=== PATIENT | female | born 1945 | race Caucasian/White ===

== ENCOUNTER 2017-05-06 11:08 | Emergency (ER) | payer MEDICARE, MEDICAID ==
[~2017-05-06] VITALS: Ht 160 cm; Wt 35.0 kg
[~2017-05-06 11:08] MED LIST: FERGLU300T PO; HYDR-3972 PO; NICO-687 TD; OMEP20CA10 PO; ONDA4TAB6 PO; PRO2.5T PO; ROPI1TAB17 PO; TRAZ150T78 PO
[2017-05-06 11:52] LABS: BASOPHILS # (AUTO) 0.1 X10'3 (0-0.2); BASOPHILS % (AUTO) 0.5 % (0-1); EOSINOPHILS # (AUTO) 0.2 X10'3 (0-0.9); EOSINOPHILS % (AUTO) 1.8 % (0-6); HEMATOCRIT 44.7 % (35.0-45.0); HEMOGLOBIN 14.8 g/dl (12.0-16.0); LYMPHOCYTES # (AUTO) 0.5 X10'3 (1.1-4.8); LYMPHOCYTES % (AUTO) 3.7 % (21-51); MEAN CORPUSCULAR HGB CONC 33.2 % (33.0-36.5); MEAN CORPUSCULAR VOLUME 99.5 FL (78-98); MEAN PLATELET VOLUME 7.7 FL (7.4-10.4); MONOCYTES # (AUTO) 0.3 X10'3 (0-0.9); MONOCYTES % (AUTO) 2.2 % (2-12); NEUTROPHILS # (AUTO) 12.4 X10'3 (1.8-7.7); NEUTROPHILS % (AUTO) 91.8 % (42-75); PLATELET COUNT 191 X10'3 (140-440); RED BLOOD COUNT 4.49 X10'6 (4.20-5.60); RED CELL DISTRIBUTION WIDTH 14.3 % (11.5-14.5); WHITE BLOOD COUNT 13.5 X10'3 (4.5-11.0)
[2017-05-06 12:04] LABS: ALANINE AMINOTRANSFERASE 10 U/L (12-78); ALBUMIN 3.6 G/DL (3.4-5.0); ALBUMIN/GLOBULIN RATIO 1.3 (1.1-1.5); ALKALINE PHOSPHATASE 47 IU/L (46-116); ANION GAP 9 (8-16); ASPARTATE AMINO TRANSFERASE 13 U/L (10-37); BILIRUBIN,TOTAL 0.5 MG/DL (0.1-1.0); BLOOD UREA NITROGEN 11 MG/DL (7-18); BUN/CREATININE RATIO 12.6 (6.6-38.0); CALCIUM 8.7 MG/DL (8.5-10.1); CHLORIDE 104 MMOL/L (99-107); CREATININE 0.87 MG/DL (0.40-0.90); GLUCOSE 113 MG/DL (70-104); LIPASE 299 U/L (73-393); POTASSIUM 3.3 MMOL/L (3.5-5.1); SODIUM 141 MMOL/L (135-145); TOTAL CARBON DIOXIDE 28.5 MMOL/L (24-32); TOTAL PROTEIN 6.4 G/DL (6.4-8.2); eGFR 64 ML/MIN
[2017-05-06] MEDS ORDERED: ONDA4TAB6 PO (12:39)
[2017-05-06] MEDS: ondansetron 4mg rapidly disintigrating tab PO ONE (13:39)
[2017-05-06 13:43] VITALS: BP 149/96
== END 2017-05-06 13:45 | disposition home or self-care (01) ==
LOC: ER 11:09
DX: R10.12 Left upper quadrant pain (principal); R63.6 Underweight; R11.2 Nausea with vomiting, unspecified; R19.7 Diarrhea, unspecified; I10 Essential (primary) hypertension; J44.9 Chronic obstructive pulmonary disease, unspecified; K21.9 Gastro-esophageal reflux disease without esophagitis; G89.29 Other chronic pain; F12.10 Cannabis abuse, uncomplicated; Z68.1 Body mass index [BMI] 19.9 or less, adult; Z79.899 Other long term (current) drug therapy; Z98.890 Other specified postprocedural states; Z88.8 Allergy status to other drugs, medicaments and biological substances
CPT/HCPCS: 36415; 74176; 80053; 83690; 85025; 99285

== ENCOUNTER 2017-07-08 14:33 | Inpatient (IN) | payer MEDICARE, MEDICAID ==
[~2017-07-08] VITALS: Ht 160 cm; Wt 31.8 kg
[2017-07-08] MEDS ORDERED: dextrose 50%-water 50ml dispensing syringe IV ONE (15:17)
[2017-07-08 16:06] LABS: ALANINE AMINOTRANSFERASE 107 U/L (12-78); ALKALINE PHOSPHATASE 83 IU/L (46-116); ANION GAP 21 (8-16); ASPARTATE AMINO TRANSFERASE 502 U/L (10-37); BILIRUBIN,TOTAL 0.6 MG/DL (0.1-1.0); BLOOD UREA NITROGEN 66 MG/DL (7-18); BUN/CREATININE RATIO 42.9 (6.6-38.0); CALCIUM 8.3 MG/DL (8.5-10.1); CHLORIDE 104 MMOL/L (99-107); CREATININE 1.54 MG/DL (0.40-0.90); POTASSIUM 5.5 MMOL/L (3.5-5.1); SODIUM 145 MMOL/L (135-145); TOTAL CARBON DIOXIDE 19.7 MMOL/L (24-32); eGFR 33 ML/MIN
[2017-07-08 16:10] LABS: GLUCOSE 11 MG/DL (70-104); TROPONIN I 0.32 NG/ML (0.0-0.05)
[2017-07-08] MEDS ORDERED: normal saline 1000ml 1,000 ML IV SCH (16:10)
[2017-07-08] MEDS ORDERED: normal saline 1000ml 1,000 ML IV ONE (16:10)
[2017-07-08 16:12] LABS: BASOPHILS % (AUTO) 0 % (0-1); EOSINOPHILS % (AUTO) 0 % (0-6); HEMATOCRIT 28.7 % (35.0-45.0); HEMOGLOBIN 9.7 g/dl (12.0-16.0); LYMPHOCYTES # (AUTO) 0.4 X10'3 (1.1-4.8); LYMPHOCYTES % (AUTO) 2.4 % (21-51); MEAN CORPUSCULAR HEMOGLOBIN 34.8 PG (27.0-31.0); MEAN CORPUSCULAR HGB CONC 33.9 % (33.0-36.5); MEAN CORPUSCULAR VOLUME 102.7 FL (78-98); MEAN PLATELET VOLUME 8.9 FL (7.4-10.4); MONOCYTES # (AUTO) 0.8 X10'3 (0-0.9); MONOCYTES % (AUTO) 5.5 % (2-12); NEUTROPHILS # (AUTO) 14.1 X10'3 (1.8-7.7); NEUTROPHILS % (AUTO) 92.1 % (42-75); PLATELET COUNT 176 X10'3 (140-440); RED BLOOD COUNT 2.79 X10'6 (4.20-5.60); WHITE BLOOD COUNT 15.3 X10'3 (4.5-11.0)
[2017-07-08 16:19] LABS: INR 1.4 INR; PARTIAL THROMBOPLASTIN TIME 32 SECONDS (22-32); PROTHROMBIN TIME 14.1 SECONDS (9.0-12.0)
[2017-07-08 16:27] LABS: LACTIC SEPSIS 1.7 MMOL/L (0.4-2.0)
[2017-07-08] MEDS ORDERED: dextrose 5%-normal saline 1,000 ML IV ONE ×2 (16:30→16:40)
[2017-07-08 16:36] LABS: CLARITY,URINE SLIGHTLY CLOUDY (Clear); COLOR,URINE YELLOW (Yellow); GLUCOSE, URINE NEGATIVE (Neg); KETONES,URINE 15 mg/dl (Neg); LEUKOCYTE ESTERASE ,URINE NEGATIVE (Neg); NITRITES, URINE NEGATIVE (Neg); OCCULT BLOOD,URINE LARGE (Neg); PH,URINE 5.5 (4.8-8.0); PROTEIN,URINE 30 mg/dl (Neg); UROBILINOGEN,URINE 0.2 E.U/dL (0.2-1.0)
[2017-07-08 16:41] LABS: URINE AMPHETAMINE SCREEN NEGATIVE (Neg); URINE BARBITUATE SCREEN NEGATIVE (Neg); URINE BENZODIAZEPINES SCREEN NEGATIVE (Neg); URINE CANNABINOID SCREEN NEGATIVE (Neg); URINE COCAINE SCREEN NEGATIVE (Neg); URINE METHADONE SCREEN NEGATIVE (Neg); URINE OPIATE SCREEN POSITIVE (Neg); URINE PHENCYCLIDINE SCREEN NEGATIVE (Neg)
[2017-07-08] MEDS ORDERED: lactulose 20gm/30ml cup PO ONE (16:45)
[2017-07-08 16:56] LABS: UA COLLECTION TYPE STRAIGHT CATH
[2017-07-08 17:05] LABS: BACTERIA,URINE 1+ /HPF (Neg); RBC,URINE 0-2 /HPF (0-2); SQUAMOUS EPITHELIAL CELL,UR FEW /LPF (FEW)
[2017-07-08 17:06] LABS: AMORPHOUS URATES 1+; MUCUS STRANDS NONE SEEN /LPF (Neg)
[2017-07-08 17:30] LABS: ANISOCYTOSIS 2+; LARGE PLATELETS FEW; PLATELET ESTIMATE NORMAL; TOTAL CELLS COUNTED 100
[2017-07-08 17:32] LABS: MICROCYTOSIS 1+; POLYCHROMASIA FEW
[2017-07-08 17:35] LABS: ABG BASE EXCESS -15.6 mmol/L (-2.0-3.0); ABG HCO3 12.7 mmol/L (22.0-26.0); ABG OXYGEN SATURATION 93.6 % (95-98); ABG PCO2 (T) 40.4 mmHg (32.0-45.0); ABG PH (T) 7.116 (7.350-7.450); ABG PO2 (T) 94.8 mmHg (83-108); ALLEN'S TEST Positive; FCOHb 1.1 % (0.5-1.5); FMetHb 0.3 % (0.3-1.12); FO2Hb 92.3 % (94-100); TOTAL HEMOGLOBIN 8.4 G/dl (12.0-16.0)
[2017-07-08] MEDS ORDERED: lactulose 20gm/30ml cup RC ONE (17:40)
[2017-07-08] MEDS ORDERED: LORazepam 2 mg/ml vial IV ONE (17:55)
[2017-07-08] MEDS: sodium bicarbonate (8.4%) inj. 100 MEQ in dextrose 5%-water 1,000 ML IV SCH (18:30)
[2017-07-08] MEDS ORDERED: dextrose ORAL solution 15 GM/59 ML bottle PO PRN ×2 (18:50)
[2017-07-08] MEDS ORDERED: dextrose 50%-water 50ml dispensing syringe IV PRN ×2 (18:50)
[2017-07-08] MEDS ORDERED: morphine 2 MG/ML inj. syringe IV PRN (18:50)
[2017-07-08] MEDS ORDERED: ondansetron/PF 4mg/2ml inj IV PRN (18:50)
[2017-07-08] MEDS ORDERED: glucagon, human recombinant 1mg kit SUBCUT PRN (18:50)
[2017-07-08] MEDS ORDERED: bisacodyl 10mg suppository rectal RC PRN (18:50)
[2017-07-08] MEDS ORDERED: acetaminophen 325mg tablet PO PRN (18:50)
[2017-07-08] MEDS ORDERED: mag hydrox/Alum hydrox/simeth 30ml oral suspension PO PRN (18:50)
[2017-07-08] MEDS ORDERED: HYDROcodone/acetaminophen 5mg/325mg tablet PO PRN (18:50)
[2017-07-08] MEDS: cefTRIAXone 1g/NS 100ml IVPB 100 ML IV SCH (19:29)
[2017-07-08 22:44] LABS: ALBUMIN 2.4 G/DL (3.4-5.0); ANION GAP 13 (8-16); BLOOD UREA NITROGEN 57 MG/DL (7-18); BUN/CREATININE RATIO 40.1 (6.6-38.0); CHLORIDE 111 MMOL/L (99-107); CREATININE 1.42 MG/DL (0.40-0.90); GLUCOSE 252 MG/DL (70-104); SODIUM 148 MMOL/L (135-145); TOTAL CARBON DIOXIDE 23.6 MMOL/L (24-32); eGFR 36 ML/MIN
[2017-07-08 22:53] LABS: HEMOGLOBIN A1C 4.4 % (4.5-6.2)
[2017-07-09] MEDS: sodium bicarbonate (8.4%) inj. 100 MEQ in dextrose 5%-water 1,000 ML IV SCH (05:19)
[2017-07-09] MEDS ORDERED: ALBU18HF2 (07:05)
[2017-07-09] MEDS ORDERED: SERT100T10 PO (07:05)
[2017-07-09] MEDS ORDERED: ROPI1TAB4 (07:05)
[2017-07-09] MEDS ORDERED: MELO-102 PO (07:05)
[2017-07-09 07:20] LABS: BASOPHILS % (AUTO) 0 % (0-1); EOSINOPHILS % (AUTO) 0.1 % (0-6); HEMATOCRIT 28.1 % (35.0-45.0); HEMOGLOBIN 9.4 g/dl (12.0-16.0); LYMPHOCYTES # (AUTO) 0.3 X10'3 (1.1-4.8); LYMPHOCYTES % (AUTO) 2.5 % (21-51); MEAN CORPUSCULAR HEMOGLOBIN 34.5 PG (27.0-31.0); MEAN CORPUSCULAR HGB CONC 33.4 % (33.0-36.5); MEAN CORPUSCULAR VOLUME 103.1 FL (78-98); MEAN PLATELET VOLUME 8.6 FL (7.4-10.4); MONOCYTES # (AUTO) 0.6 X10'3 (0-0.9); MONOCYTES % (AUTO) 4.7 % (2-12); NEUTROPHILS # (AUTO) 12.2 X10'3 (1.8-7.7); NEUTROPHILS % (AUTO) 92.7 % (42-75); PLATELET COUNT 117 X10'3 (140-440); RED BLOOD COUNT 2.73 X10'6 (4.20-5.60); RED CELL DISTRIBUTION WIDTH 18.3 % (11.5-14.5); WHITE BLOOD COUNT 13.1 X10'3 (4.5-11.0)
[2017-07-09 07:30] VITALS: BP 158/87
[2017-07-09 07:42] LABS: ALANINE AMINOTRANSFERASE 120 U/L (12-78); ALBUMIN 2.4 G/DL (3.4-5.0); ALBUMIN/GLOBULIN RATIO 0.8 (1.1-1.5); ALKALINE PHOSPHATASE 74 IU/L (46-116); ANION GAP 11 (8-16); ASPARTATE AMINO TRANSFERASE 327 U/L (10-37); BILIRUBIN,TOTAL 0.4 MG/DL (0.1-1.0); BLOOD UREA NITROGEN 48 MG/DL (7-18); BUN/CREATININE RATIO 36.6 (6.6-38.0); CHLORIDE 110 MMOL/L (99-107); CREATININE 1.31 MG/DL (0.40-0.90); GLUCOSE 145 MG/DL (70-104); POTASSIUM 3.5 MMOL/L (3.5-5.1); SODIUM 150 MMOL/L (135-145); TOTAL CARBON DIOXIDE 28.6 MMOL/L (24-32); TOTAL PROTEIN 5.3 G/DL (6.4-8.2); eGFR 40 ML/MIN
[2017-07-09] MEDS ORDERED: normal saline 1000ml 1,000 ML IV ONE (07:50)
[2017-07-09 08:08] LABS: % IRON SATURATION 21 % (11-46); IRON 32 UG/DL (49-151); TOTAL IRON BINDING CAPACITY 153 UG/DL (259-388)
[2017-07-09] MEDS: cefTRIAXone 1g/NS 100ml IVPB 100 ML IV SCH (09:43)
[2017-07-09 10:00] VITALS: BP 144/72
[2017-07-09] MEDS ORDERED: LORazepam 2 mg/ml vial IV PRN (11:10)
[2017-07-09 11:32] LABS: TOTAL CELLS COUNTED 100
[2017-07-09 11:33] LABS: PLATELET ESTIMATE DECREASED; TOXIC GRANULATION 1+; TOXIC VACUOLATION FEW
[2017-07-09 11:34] LABS: ANISOCYTOSIS 2+; MICROCYTOSIS FEW; POLYCHROMASIA FEW
[2017-07-09 12:33] LABS: ALBUMIN 2.4 G/DL (3.4-5.0); ANION GAP 10 (8-16); BLOOD UREA NITROGEN 43 MG/DL (7-18); BUN/CREATININE RATIO 39.1 (6.6-38.0); CHLORIDE 111 MMOL/L (99-107); GLUCOSE 129 MG/DL (70-104); POTASSIUM 3.9 MMOL/L (3.5-5.1); SODIUM 151 MMOL/L (135-145); TOTAL CARBON DIOXIDE 30.3 MMOL/L (24-32); eGFR 49 ML/MIN
[2017-07-09] MEDS ORDERED: ketorolac tromethamine 15mg/ml inj. IV PRN (14:00)
[2017-07-09] MEDS ORDERED: enoxaparin 30mg/0.3ml syringe SUBCUT SCH (14:00)
[2017-07-09] MEDS: LORazepam 2 mg/ml vial IV PRN ×2 (16:06→23:34)
[2017-07-09] MEDS: potassium CL 20mEq in D5-1/2NS 1,000 ML IV SCH (17:47)
[2017-07-09] MEDS ORDERED: lactobacillus rhamnosus 10,000 MMU CELLS/CAPSULE PO SCH (20:00)
[2017-07-09] MEDS: morphine 4 MG/ML inj SYRINge IV PRN (21:16)
[2017-07-09 22:00] VITALS: BP 170/82
[2017-07-10] MEDS: potassium CL 20mEq in D5-1/2NS 1,000 ML IV SCH ×2 (02:53→11:55)
[2017-07-10] MEDS: LORazepam 2 mg/ml vial IV PRN ×4 (04:56→22:36)
[2017-07-10 10:00] VITALS: BP 187/108
[2017-07-10] MEDS: morphine 4 MG/ML inj SYRINge IV PRN (11:26)
[2017-07-11 02:00] VITALS: BP 183/98
[2017-07-11] MEDS: LORazepam 2 mg/ml vial IV PRN ×4 (03:52→23:38)
[2017-07-11 10:00] VITALS: BP 171/104
[2017-07-11] MEDS: morphine 4 MG/ML inj SYRINge IV PRN ×2 (10:21→15:27)
[2017-07-12] MEDS: LORazepam 2 mg/ml vial IV PRN ×4 (05:43→22:54)
[2017-07-12 06:00] VITALS: BP 168/99
[2017-07-12] MEDS: morphine 4 MG/ML inj SYRINge IV PRN ×2 (09:00→12:51)
[2017-07-12 10:00] VITALS: BP 144/102
[2017-07-12] MEDS: LORazepam 1 MG tablet PO PRN (10:16)
[2017-07-12] MEDS: morphine 10mg/0.5ml (conc. morphine) oral syringe PO PRN ×4 (13:45→23:01)
[2017-07-12 22:00] VITALS: BP 151/73
[2017-07-13] MEDS: LORazepam 2 mg/ml vial IV PRN ×4 (01:11→23:06)
[2017-07-13] MEDS: morphine 4 MG/ML inj SYRINge IV PRN (01:12)
[2017-07-13 10:00] VITALS: BP 150/76
[2017-07-13] MEDS: morphine 10mg/0.5ml (conc. morphine) oral syringe PO PRN (17:11)
[2017-07-13 22:00] VITALS: BP 143/43
[2017-07-14] MEDS: morphine 10mg/0.5ml (conc. morphine) oral syringe PO PRN ×4 (00:15→21:45)
[2017-07-14] MEDS: LORazepam 2 mg/ml vial IV PRN ×3 (01:30→21:27)
[2017-07-14] MEDS: LORazepam 1 MG tablet PO PRN (07:22)
[2017-07-14 10:00] VITALS: BP 186/77
[2017-07-14 22:00] VITALS: BP 125/66
[2017-07-15] MEDS: morphine 10mg/0.5ml (conc. morphine) oral syringe PO PRN (08:37)
[2017-07-15 10:00] VITALS: BP 105/59
[2017-07-15] MEDS: LORazepam 2 mg/ml vial IV PRN (12:46)
[2017-07-15 22:00] VITALS: BP 98/59
[2017-07-16 10:00] VITALS: BP 110/63
[2017-07-16] MEDS: morphine 10mg/0.5ml (conc. morphine) oral syringe PO PRN ×3 (11:10→15:11)
[2017-07-16] MEDS: LORazepam 2 mg/ml vial IV PRN ×2 (13:16→16:15)
== END 2017-07-16 18:40 | disposition expired | DRG 682 ==
LOC: ER 14:35 → ED HOLD 18:48 → ORTHO 4S 07-09 07:20
PROVIDERS: ADMIT Family Medicine; ATTEND Family Medicine
DX: N17.9 Acute kidney failure, unspecified (principal); G93.40 Encephalopathy, unspecified; I21.4 Non-ST elevation (NSTEMI) myocardial infarction; E43 Unspecified severe protein-calorie malnutrition; E87.0 Hyperosmolality and hypernatremia; E87.2 Acidosis; K72.90 Hepatic failure, unspecified without coma; E87.5 Hyperkalemia; J44.1 Chronic obstructive pulmonary disease with (acute) exacerbation; N39.0 Urinary tract infection, site not specified; Z68.1 Body mass index [BMI] 19.9 or less, adult; E86.0 Dehydration; E16.2 Hypoglycemia, unspecified; M54.9 Dorsalgia, unspecified; R74.0 Nonspecific elevation of levels of transaminase and lactic acid dehydrogenase [LDH]; R91.1 Solitary pulmonary nodule; D53.9 Nutritional anemia, unspecified; F32.9 Major depressive disorder, single episode, unspecified; F41.9 Anxiety disorder, unspecified; G89.29 Other chronic pain; I10 Essential (primary) hypertension; K21.9 Gastro-esophageal reflux disease without esophagitis; F10.20 Alcohol dependence, uncomplicated; F17.210 Nicotine dependence, cigarettes, uncomplicated; Z51.5 Encounter for palliative care; Z66 Do not resuscitate; Z88.8 Allergy status to other drugs, medicaments and biological substances; Z85.118 Personal history of other malignant neoplasm of bronchus and lung
CPT/HCPCS: 36415; 36600; 70450; 71045; 80048; 80053; 80305; 80320; 81001; 82140; 82607; 82803; 82948; 83036; 83540; 83550; 83605; 84484; 85018; 85025; 85610; 85730; 87040; 87070; 87088; 93005; 96361; 96374; 99291; A4315; A4620; A6212; A6213; A6255; J0696; J2060; J2270; J7030; J7042; J7070